=== PATIENT | male | born 1945 | race Caucasian/White ===

== ENCOUNTER 2024-01-27 05:49 | Day surgery (SDC) | payer MEDICARE, SELFPAY ==
[2024-01-27] VITALS (9 sets, daily range): BP systolic 128–153; BP diastolic 60–89; PULSE 81–105; RESP 16–18; TEMP 36.2–37.3; O2SAT 94–99; BMI 27.8
[2024-01-27 06:58] LABS: Bedside Glucose 128 mg/dL (74-106)
[2024-01-27] MEDS: Erythromycin Base 1 OPTH.TUBE 1 APPLIC (07:02)
--- NOTE | 2024-01-27 07:02 | PCM.HP.BLA ---
History and Physical Date of Admission: 01/27/24 The patient is examined and there are no changes to the H&P dated 01/23/24. Pt with upper eyelid dermatochalasis obstructing visual callaway. Informed consent was obtained. Pt for upper blepharoplasty. Assessment & Plan Assessment/Plan (1) Visual field defect of both eyes: (2) Dermatochalasis of both upper eyelids: PLAN: Plan Pt for upper blepharoplasty.
--- NOTE | 2024-01-27 07:07 | PCM.PRE.AN2 ---
ASA Classification* ASA Classification ASA Classification: 2 Assessment & Plan Anesthesia* Anesthesia Assessment Anesthesia Assessment: Discussed sedation and/or anesthesia options, risks, benefits, and alternatives with patient/parents/legal guardian/POA. Questions invited. The patient/parents/legal guardian/POA seems to understand and agrees to proceed with anesthesia plan. Reviewed the physical assessment, medical history, allergy history and patient home medications list prior to surgery/procedure/anesthetic and documented any changes. Performed airway and anesthesia risk assessments. Anesthesia Type Anesthesia Type: General (see written pre anesthesia record for full assessment) Anesthesia Focused Assessment* Temperature: 97.6 F Pulse Rate: 81 Blood Pressure: 153/89 Respiratory Rate: 16 Pulse Ox: 99 Airway Assessment Mouth opens: >3 cm Mallampati Score: II Focused Labs Anesthesia Preop lab: CBC WBC 5.8 k/mm3 (4.4-11.0) 09/07/12 10:43 RBC 4.45 M/mm3 (4.6-6.2) L 09/07/12 10:43 Hgb 15.3 g/dl (13.0-16.5) 09/07/12 10:43 Hct 43.1 % (40-54) 09/07/12 10:43 Plt Count 175 K/mm3 (150-450) 09/07/12 10:43 CHEMISTRY Potassium 4.3 mmol/L (3.5-5.1) 09/07/12 10:43 Sodium 139 mmol/L (136-145) 09/07/12 10:43 BUN 18 mg/dL (7-18) 09/07/12 10:43 Creatinine 1.0 mg/dL (0.8-1.3) 09/07/12 10:43 Glucose 111 mg/dL (70-110) H 09/07/12 10:43 POC Glucose 128 mg/dL (74-106) H 01/27/24 06:21 COAG Pre-Assessment Diagnosis/Proposed Procedure Planned Operative Procedure(s): Bilateral upper blepharoplasty Anesthesia History 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 When Was Last Pacemaker Check QUESTION #4 FULL TEXT: You/Your Family Experience fever (hyperthermia) with Anesthesia Last Oral Intake Last Oral intake: Last Oral Intake NPO since 00:00 01/27/24 06:22 Meds taken in AM with sips of Yes 01/27/24 06:22 water? Meds patient instructed to lisinpril 01/27/24 06:22 take am of surgery PONV PONV - link trainer teacher: PONV - link trainer teacher Female No 01/18/24 10:25 HX of Motion Sickness Yes 01/18/24 10:25 HX of N/V After Surgery No 01/18/24 10:25 Non-Smoker Yes 01/18/24 10:25 Duration of Surgery greater Yes 01/18/24 10:25 than 60 minutes Number of Risk Factors 3 01/18/24 10:25 PONV Score Moderate Risk 01/18/24 10:25 Height & Weight Height & Weight: Anesthesia: Height & Weight Height 5 ft 8 in 01/27/24 06:22 Weight: 83 kg 01/27/24 06:22 Body Mass Index (BMI) 27.8 01/27/24 06:22 Respiratory Assessment Respiratory Assessment - link trainer teacher: Respiratory Tract Infection Hx - link trainer teacher Hx Respiratory Tract Infection No 01/18/24 10:25 STOP Sleep Apnea STOP Sleep Apnea - link trainer teacher: STOP Sleep Apnea - link trainer teacher Hx Hypertension Yes: CONTROLLED ON MED 01/18/24 10:25 Hx Sleep Apnea No 01/18/24 10:25 CPAP BIPAP Do you snore loudly (louder No 01/18/24 10:25 than talking or can be heard Do you often feel tired/ No 01/18/24 10:25 fatigued/ sleepy during daytime? Has anyone observed you stop No 01/18/24 10:25 breathing during sleep? STOP Results Negative 01/18/24 10:25 QUESTION #5 FULL TEXT : Do you snore loudly (louder than talking or can be heard through closed doors)? 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 Specify any problems Hx of Preganancy in last 3 N/A 01/18/24 10:25 Months Nurse Filling Out Transfusion VCHRISTIN 01/18/24 10:25 & Questions: Date: 01/18/24 01/18/24 10:25 Time: 10:01/18/24 10:25 Patient unable to answer at this time (ie. confused, unrespo /Reproduction History /Reproductive History - link trainer teacher: /Reproductive Hx- link trainer teacher Hx Now Gestational Age (in weeks): EDC: Hx Hx Para Hx Section SAB Active Medications Active Medications: Current Medications Generic Name Dose Route Start Last Admin Trade Name Freq PRN Reason Stop Dose Admin Cefazolin Sodium 2 gm/ N/A 20 mls @ 400 mls/hr 01/27/24 07:30 IV 01/27/24 07:32 PREOP [facility] Medical History Wears glasses History of steroid therapy Diabetes Arthritis High cholesterol DVT (deep venous thrombosis) Back pain Injury of head and neck Non-smoker History of stress test Hypertension History of diabetes mellitus History of neuropathy History of hypertension History of high cholesterol History of blood clots History of arthritis Home Medications ?Medication ?Instructions ?Recorded ?Last Taken ?Type aspirin 81 mg tablet,delayed 81 mg PO DAILY 11/09/23 01/20/24 09:37 History release coenzyme Q10 10 mg capsule (Co 10 mg PO DAILY 11/09/23 01/26/24 History Q-10) lisinopril 20 mg tablet 20 mg PO DAILY 11/09/23 01/27/24 History mecobalamin (vitamin B12) 1,000 1,000 mcg PO DAILY 11/09/23 01/26/24 History mcg lozenges pyridoxine (vitamin B6) 100 mg/2.5 100 mg PO DAILY 11/09/23 01/26/24 History mL oral liquid rosuvastatin 10 mg tablet 10 mg PO DAILY 11/09/23 01/26/24 History turmeric 400 mg capsule 400 mg PO DAILY 11/09/23 01/26/24 History saw palmetto 500 mg capsule 500 mg PO DAILY 01/18/24 01/26/24 History tadalafil 2.5 mg tablet 2.5 mg PO DAILY 01/18/24 01/26/24 History cephalexin 500 mg capsule 500 mg PO BID #10 caps 01/24/24 Unknown Rx erythromycin 5 mg/gram (0.5 %) eye 1 applic ophthalmic (eye) DAILY 01/24/24 Unknown Rx ointment #3.5 grams Allergy/AdvReac Type Severity Reaction Status Date / Time No Known Allergies Allergy Verified 01/24/24 09:37 Family History Father Arthritis Hypertension High cholesterol Brother Diabetes Cancer lymphoma High cholesterol Hypertension Surgical History History of hand surgery History of arthroscopic knee surgery History of appendectomy Social History Smoking Status: Former smoker Review of Systems (Anesthesia) ROS Narrative System reviewed and no additional complaints, except as documented.
[2024-01-27] MEDS: Cefazolin 2 GM in Syringe IV (07:35)
[2024-01-27] MEDS: Tetracaine 0.5% Ophthalmic Bottle 1 DRP (08:14)
[2024-01-27] MEDS: Petrolatum,White 3.75GM OPTH.TUBE 1 APPLIC OPHTHALMIC (08:14)
[2024-01-27] MEDS: Lidocaine 1% /Epi 1:100 (20ml) 20 ML Vial (08:14)
[2024-01-27] MEDS: EPINEPHrine Nasal 0.1% 30 ML Bottle TOPICAL (08:14)
[2024-01-27] MEDS: Povidone Iodine 30 ML Opthalmic Sol 1 DRP (08:14)
--- NOTE | 2024-01-27 09:38 | EX.PCM.DISCH ---
Discharge Instructions Dressing / Incision Additional Dressing/Incision Instructions:: Keep your head elevated (recliner position) to decrease bruising and swelling. Follow the instructions given in the office. Follow Up Care Please Follow Up With: Katelyn Marrero MD When: 1 to 2 weeks Test Results: Test results from this visit will be discussed in further detail at your follow-up appointment, if applicable. Discharge Plan Admission Attending Provider: Katelyn Marrero Primary Care Provider: Ari Roy Instructions Print Language: Mongolian Discharge Orders/Prescriptions Prescriptions: No Action lisinopril 20 mg tablet 20 mg PO DAILY rosuvastatin 10 mg tablet 10 mg PO DAILY pyridoxine (vitamin B6) 100 mg/2.5 mL liquid 100 mg PO DAILY mecobalamin (vitamin B12) 1,000 mcg lozenge 1,000 mcg PO DAILY Rx Instructions: allow to dissolve in mouth OR may chew lightly before swallowing turmeric 400 mg capsule 400 mg PO DAILY coenzyme Q10 [Co Q-10] 10 mg capsule 10 mg PO DAILY aspirin 81 mg tablet,delayed release (DR/EC) 81 mg PO DAILY Patient Comments: STOP 2 WEEKS PRIOR TO PROCEDURE cephalexin 500 mg capsule 500 mg PO BID Qty: 10 0RF erythromycin 5 mg/gram (0.5 %) ointment 1 applic ophthalmic (eye) DAILY Qty: 3.5 0RF Rx Instructions: Apply to incision 1 x a day and in the eyes at night-time. saw palmetto 500 mg capsule 500 mg PO DAILY Rx Instructions: give with food (meal/snack) tadalafil 2.5 mg tablet 2.5 mg PO DAILY Referrals / Follow Up: Ari Roy MD [Primary Care Provider] - Disposition Disposition (needs filled in before D/C Order can be placed): Home, Self Care
--- NOTE | 2024-01-27 09:40 | OP.PCM_ITS ---
Problems Associated Problem List Diagnoses (1) Visual field defect of both eyes: (2) Dermatochalasis of both upper eyelids: Report of Operation Date of Procedure: 01/27/24 Pre-Operative Diagnosis: Bilateral upper eyelid dermatochalasis Obstruction of visual callaway Post-Operative Diagnosis: Same Surgery/Procedure Performed:: Bilateral upper blepharoplasty Surgeon: Katelyn Marrero chainstitch zipper setter: Bella Gomez Type of Anesthesia: General Estimated Blood Loss (mL): Minimal Description of Procedure: The patient presents today for upper blepharoplasty due to obstruction of visual callaway. An informed consent had been obtained. He is marked in the preop holding area prior to surgery. The patient is brought to the operating room and placed under general anesthesia in the supine position. The face is prepped and draped in the usual sterile fashion. Tetracaine drops were placed in the eye and lubricated corneal montgomery are placed bilaterally. We initially began with making incisions along the premarked area. The skin is taken out as a full-thickness skin excision. Meticulous hemostasis is assured with bipolar cautery. A strip of orbicularis oculi is taken out within the open area. Again meticulous hemostasis is pursued. The wound is then tacked together with a fast-absorbing gut suture. The identical procedures performed on the opposite side. Cool compresses are placed on both eyes during the case when the focus is on the other eye. A 5-0 Prolene suture was then used to approximate skin edges in a subcuticular fashion. The suture is anchored at the temples and glabella. Erythromycin ophthalmic ointment is placed along the incisions and the corneal montgomery are removed. Cool compresses are placed bilaterally. He tolerated the procedure well and was taken to the recovery area in an awakening in stable condition. Needle and sponge counts are correct. Complications None Admit VTE Documentation VTE Mechan Device Prophylaxis: SCD's
--- NOTE | 2024-01-27 09:44 | PCM.POST.ANE ---
Anesthesia: Postop Eval I Current Vital Signs Temperature: 97.4 F Pulse Rate: 96 Blood Pressure: 128/64 Respiratory Rate: 16 Pulse Ox: 95 Oxygen Delivery Method: Room Air Assessment Airway patent: Yes Spontaneous unlabored respirations: Yes Mental status: Awake and Calm nausea: No Vomiting: No Anesthesia Complication: No Fluid Hydration Crystalloid volume administer (ml): 100 Total IV fluid infused: 100 Progress Note Anesthesia document: Postop Eval 1 completed: Yes
--- NOTE | 2024-01-27 09:54 | POSTOPAN2_ITS ---
Anesthesia Postop Eval I Sum Postop Eval Completion status Anesthesia document: Postop Eval 1 completed: Yes Anesthesia Postop Eval I Summary Anesthesia Postop Eval I Summary: Anesthesia Postop Eval I: Assessment Summary Airway patent Yes 01/27/24 09:45 BODY ENGINEER.NILAYOBElena Spontaneous unlabored Yes 01/27/24 09:45 BODY ENGINEER.ZARA respirations Mental status Awake,Calm 01/27/24 09:45 BODY ENGINEER.ZARA nausea No 01/27/24 09:45 BODY ENGINEER.ZARA Vomiting No 01/27/24 09:45 BODY ENGINEER.ZARA Anesthesia Postop Eval I: Fluid Summary Crystalloid volume administer 100 01/27/24 09:45 BODY ENGINEER.NILAYOBY (ml) Colloids volume administered ( ml) Blood Product volume administered (ml) Total IV fluid infused 100 01/27/24 09:45 BODY ENGINEER.ZARA Anesthesia Postop Eval I: Summary Notes Anesthesia Complication No 01/27/24 09:45 BODY ENGINEERRASHID Anesthesia Complication Comment: Post-operative progress note Anesthesia: Postop Eval II Evaluation Mental status: Awake Pain Level: 0 nausea: No Vomiting: No
--- NOTE | 2024-01-27 09:54 | PCM.POSTANE2 ---
Anesthesia Postop Eval I Sum Postop Eval Completion status Anesthesia document: Postop Eval 1 completed: Yes Anesthesia Postop Eval I Summary Anesthesia Postop Eval I Summary: Anesthesia Postop Eval I: Assessment Summary Airway patent Yes 01/27/24 09:45 DIRECTOR OF LEARNING.NILAYOBElena Spontaneous unlabored Yes 01/27/24 09:45 DIRECTOR OF LEARNING.ZARA respirations Mental status Awake,Calm 01/27/24 09:45 DIRECTOR OF LEARNING.ZARA nausea No 01/27/24 09:45 DIRECTOR OF LEARNING.ZARA Vomiting No 01/27/24 09:45 DIRECTOR OF LEARNING.ZARA Anesthesia Postop Eval I: Fluid Summary Crystalloid volume administer 100 01/27/24 09:45 DIRECTOR OF LEARNING.NILAYOBY (ml) Colloids volume administered ( ml) Blood Product volume administered (ml) Total IV fluid infused 100 01/27/24 09:45 DIRECTOR OF LEARNING.ZARA Anesthesia Postop Eval I: Summary Notes Anesthesia Complication No 01/27/24 09:45 DIRECTOR OF LEARNINGRASHID Anesthesia Complication Comment: Post-operative progress note Anesthesia: Postop Eval II Evaluation Mental status: Awake Pain Level: 0 nausea: No Vomiting: No
== END 2024-01-27 12:18 | disposition home or self-care (01) ==
LOC: SDC 05:49 → AC 05:52
PROVIDERS: PCP Family Medicine; Referring Provider Plastic Surgery; Visit Provider Plastic Surgery
PROC: (CPT 15823; principal; 2024-01-27 07:20)
DX: H02.831 Dermatochalasis of right upper eyelid (principal); E11.9 Type 2 diabetes mellitus without complications; H02.834 Dermatochalasis of left upper eyelid; I10 Essential (primary) hypertension; Z79.899 Other long term (current) drug therapy; Z79.82 Long term (current) use of aspirin
CPT/HCPCS: 15823; 00103; 82962; A4216; J2405